=== PATIENT | female | born 1985 ===

== ENCOUNTER 2020-07-17 05:38 | Day surgery (SDC) | payer OTHER ==
[2020-07-13 14:02] VITALS: BMI 28.3
--- NOTE | 2020-07-16 10:25 | HP ---
Scheduled for surgery on 07/17/2020. HISTORY OF PRESENT ILLNESS: Ms. Dorado is a 34-year-old white female G4, P4, who is having a long history of menorrhagia and severe dysmenorrhea. She has also had recurrent right ovarian cyst, which causes her bouts of intermittent pain. She has significant history of a previous pulmonary embolism after of one of her children, which was somewhat associated with trauma. She had a workup at that time that did show her to have antiphospholipid syndrome. She has been on Coumadin off and on over the past several years due to this and states it is a recurring problem with symptoms of cyst syndrome, it will clear with her antibodies and then recur. She did have a COVID back in mid May when she was previously scheduled for surgery and when she was interviewed at that time, she was reporting some episodes of shortness of breath and bradycardia. Due to her medical history, we did obtain a cardiology consult recently. She underwent an echocardiogram of her heart along with the stress test. This was performed by Dr. Uvaldo Browne. Actually, her echocardiogram showed normal ejection fraction 55% to 60% with IAS with possible PFO (patent foramen ovale). She had a normal stress test. He cleared her for hysterectomy. The patient has also had a pelvic ultrasound in my office in November of 2019 showing normal-appearing uterus with a resolving right ovarian cyst with recent rupture. She has had a normal Pap smear with an HPV the past year along with the endometrial biopsy showing benign findings. PAST MEDICAL HISTORY: Antiphospholipid syndrome, anxiety, PFO, previous pulmonary embolism, and prior hypertension. PAST SURGICAL HISTORY: No surgical history except for the Essure. FAMILY HISTORY: Mother from heart attack. She has 4 sons. Family history of coronary artery disease. SOCIAL HISTORY: Remote history. No illicit drug use or alcohol. ALLERGIES: SHE HAS ALLERGIES TO AZITHROMYCIN. PHYSICAL EXAMINATION: VITAL SIGNS: Blood pressure 130/68, heart rate 98. Weight 175, BMI 21.3, height 76 inches. HEENT: Within normal limits. CHEST: Clear to auscultation. HEART: Regular rate and rhythm. S1, S2 heart sounds. No murmurs, rubs, or gallops. ABDOMEN: Soft, nontender. PELVIC: Vulva and vagina had no lesions. Cervix had no lesions. Uterus was mildly enlarged and mildly tender on exam. Adnexa nontender with no masses. CURRENT MEDICATIONS: 1. Clonazepam 0.5 mg tablet one t.i.d. p.r.n. anxiety. 2. Sertraline 50 mg tablet daily. 3. She is on no Lovenox bridging 0.6 mL b.i.d. for 6 weeks. ASSESSMENT AND PLAN: This is a 34-year-old white female G4, P4, with prior Essure, has chronic pelvic pain issues, recurrent right-sided pelvic pain with cyst and menorrhagia. The patient has history of antiphospholipid syndrome, which complicates her management of the menorrhagia due to intermittent anticoagulation issues. The patient is desiring definitive surgical therapy and we will proceed with a robotic TLH with RSO due to recurrent right-sided pelvic pain. She has been cleared from cardiology standpoint and surgery scheduled for 07/17/2020. We will do Lovenox bridge therapy postsurgery approximately 6 weeks. Job ID: [id number]
[2020-07-17] MEDS ORDERED: Famotidine/PF 20 mg/2ml Vial ONE ×2 (06:15→06:26)
[2020-07-17] MEDS ORDERED: Gabapentin 300 MG CAP ONE (06:15)
[2020-07-17] MEDS ORDERED: CeleCOXIB 100 MG CAP ONE (06:16)
[2020-07-17] MEDS ORDERED: Fentanyl 100 MCG/2 ML VIAL ONE ×2 (06:26→09:18)
[2020-07-17] MEDS ORDERED: Meperidine HCl/PF 25 MG/ML VIAL ONE ×2 (06:26→09:19)
[2020-07-17] MEDS ORDERED: Bupivacaine PF 0.5% 30 ML VIAL ONE (06:32)
[2020-07-17] MEDS ORDERED: EPINEPHrine 1 MG/ML AMP ONE (06:32)
[2020-07-17 06:37] LABS: BHCG - Serum Negative (NEGATIVE); Pregs Control Background? CLEAR/WHITE (CLR/WHITE); Pregs Control Bar Appear? YES (CONTROL BAR)
[2020-07-17 06:39] LABS: #Eosinphils 0.1 thou/uL (0.0-0.7); #Lymphocytes 2.4 thou/uL (1.20-3.40); #Monocytes 0.6 thou/uL (0.11-0.59); #Neutrophils 4.4 thou/uL (1.40-6.50); %Basophils 0.2 % (0.0-1.0); %Eosinophils 1.1 % (0.0-10.0); %Lymphocytes 31.5 % (21.0-51.0); %Neutrophils 59.2 % (42.0-75.0); Hemoglobin 13.1 g/dL (12.0-16.0); Mean Corpuscular HGB CONC 33.5 g/dL (32.0-36.0); Mean Corpuscular Hemoglobin 31.2 pg (27.0-31.0); Mean Corpuscular Volume 93.2 fL (78.0-98.0); Mean Platelet Volume 9.5 fL (7.4-10.4); Platelet Count 189 thou/uL (130-400); RBC Distribution Width 11.5 % (11.5-14.5); White Blood Cell (WBC) Count 7.5 thou/uL (4.8-10.8)
[2020-07-17] MEDS ORDERED: SUGAMMADEX SODIUM 500 MG/5 ML VIAL ONE (06:39)
[2020-07-17] MEDS ORDERED: Midazolam HCl 2 mg/2 ml Vial ONE (07:07)
[2020-07-17] MEDS ORDERED: Lidocaine 1% PF 5 ML VIAL ONE (09:16)
[2020-07-17] MEDS ORDERED: Ondansetron PF 4 MG/2 ML Vial ONE (09:16)
[2020-07-17] MEDS ORDERED: PHENYLEPHRINE-NS 100 MCG/ML 10 ML SYRINGE ONE (09:16)
[2020-07-17] MEDS ORDERED: Rocuronium Bromide 10 MG/ML (10ML VIAL) ONE (09:16)
[2020-07-17] MEDS ORDERED: PROPOFOL 200 MG/20 ML VIAL ONE (09:16)
[2020-07-17] MEDS ORDERED: Dexamethasone 20 MG/5 ML VIAL ONE (09:16)
[2020-07-17] MEDS ORDERED: Metoclopramide HCl 10 MG/2 ML VIAL ONE (09:16)
--- NOTE | 2020-07-17 10:25 | OP ---
DATE OF PROCEDURE: 07/17/2020 PREOPERATIVE DIAGNOSES: 1. A 34-year-old white female, G4, P4 with menorrhagia. 2. Dysmenorrhea. 3. Chronic pelvic pain with recurring right ovarian cyst. 4. History of Essure device placement. 5. History of antiphospholipid antibody syndrome. POSTOPERATIVE DIAGNOSES: 1. A 34-year-old white female, G4, P4 with menorrhagia. 2. Dysmenorrhea. 3. Chronic pelvic pain with recurring right ovarian cyst. 4. History of Essure device placement. 5. History of antiphospholipid antibody syndrome. PROCEDURES PERFORMED: Robotic TLH, RSO, and left salpingectomy. ASSISTANCE SURGEON: Wilfredo Coffman MD. ANESTHESIA: General endotracheal. ESTIMATED BLOOD LOSS: 25 mL. COMPLICATIONS: None. COUNTS: Correct x2. ANTIBIOTICS: 2 g Ancef on-call to OR with ERAS protocol. PATHOLOGY: Right tube, ovary, left tube, and uterus and cervix. FINDINGS: 1. Normal-appearing bilateral fallopian tubes and ovaries. 2. The uterus mildly enlarged and boggy in appearance suggestive of adenomyosis. 3. Clear urine present in Catherine catheter postprocedure and bladder was watertight to fluid distention postprocedure. 4. Bilateral ureteral peristalsis visualized postprocedure. DESCRIPTION OF PROCEDURE: The patient previously received informed consent in regard to surgery. She was taken back to the operating room, where she received a general endotracheal anesthetic agent without complications. She was placed in the dorsal lithotomy position with Jeronimo stirrups and prepped and draped in usual sterile fashion. A side-arm speculum was placed in the vagina after Catherine catheter had been placed. The uterus sounded to 8 cm and a size 8 cm DINA uterine manipulator with a 4.0 cm cervical cup was placed in usual fashion. Tenaculum and speculum were removed. Attention was then turned to the abdomen, where perspective trocar sites were infiltrated with 0.5% Marcaine with epinephrine. A 12 mm supraumbilical incision was made. Veress needle was entered into the peritoneal cavity with patient pressures noted to be less than 5 mm. Abdomen was insufflated to patient pressure of 15, approximately 4.5 L of carbon dioxide gas. Veress needle was then removed, and a size 12 mm trocar was placed. The robotic laparoscope was introduced through the trocar sleeve confirming proper entry. The patient was placed in Trendelenburg position and additional bilateral 8 mm trocars were placed on the lower abdomen by laparoscopic guidance along with the right upper quadrant 11 mm psychologist research assistant port. Robot was then docked. I then broke scrub and proceeded to carry out the surgery from the operative console while my assistants remained at the bedside. My psychologist research assistant grabbed the left fallopian tube. I cauterized the mesosalpinx with monopolar scissors and then coagulated the mesosalpinx removing the left fallopian tube. This was removed out of the right upper quadrant psychologist research assistant port. I then coagulated the uterine ovarian ligaments and the remainder of the broad ligament hugging close to uterus as we proceeded to coagulate the round ligament and transect this. The anterior leaf of the vesicouterine peritoneum was then entered, and the bladder flap was made in the usual fashion. The bladder was atraumatically taken down in a layering fashion of the vesicouterine peritoneum past the cervical vaginal margin. I also skeletonized the uterine vessels and coagulated them in the internal cervical os region with bipolar fenestrated cautery. The right infundibulopelvic ligament was then identified and the bipolar fenestrated cautery was utilized to coagulate this hugging close to the ovary away from the pelvic sidewall. The right IP ligament was cauterized and transected with monopolar scissors. Serial coagulation of the broad ligament hugging close to uterus was carried out again to the right round ligament, it was reached, which was coagulated and transected. The remainder of the anterior vesicouterine peritoneum leaf was incised and dissected safely past the cervical vaginal margin, dropping the bladder away from the anticipated anterior colpotomy. Again, uterine vessels were skeletonized, and they were coagulated in internal cervical os region. We distended the bladder before the anterior colpotomy was performed, and the bladder was noted to be well away from the anticipated incision site. Anterior colpotomy then was made from 12 to 3 to 12 to 9 o'clock position with monopolar scissors and completed from 6 to 9 and 6 to 3 o'clock. The specimen was then delivered into the vaginal vault. The monopolar scissors were switched with a Sahil needle bobtail driver and then I coagulated the vaginal cuff with bipolar fenestrated cautery achieving hemostasis. The STRATAFIX suture was then brought in by my psychologist research assistant and I closed the vaginal cuff in full-thickness closure starting from the right angle to the left angle back towards the right angle. The excess suture and needle were then trimmed and brought out through the right upper quadrant port. We then irrigated the pelvis well. All pedicle sites were noted to be hemostatic. The bladder was draining clear urine. Bilateral ureteral peristalsis was visualized on both sidewalls and ureters appeared to be inferior and lateral to the operative sites. Jay was sprayed over the pedicle sites for additional hemostasis and then the robot was undocked. Trocar sleeves were removed. I rescrubbed and I placed a deep stitch of 0 Vicryl in a [id number] stitch fashion in the umbilical fascial defect and the remaining of the trocar sites were closed with 4-0 Monocryl and Dermabond. A sponge stick of the vagina was also performed confirming hemostasis in the vaginal vault. Job ID: [id number] [id number]
[2020-07-17] MEDS ORDERED: HYDROcodone/Acetaminophen 5/325 mg Tablet ONE (10:40)
== END 2020-07-17 11:40 | disposition home or self-care (01) ==
LOC: SDC 05:38
PROVIDERS: ATTEND Obstetrics & Gynecology
PROC: 0UT04ZZ Resection of Right Ovary, Percutaneous Endoscopic Approach (ICD-10-PCS; principal; 2020-07-17)
PROC: 0UT74ZZ Resection of Bilateral Fallopian Tubes, Percutaneous Endoscopic Approach (ICD-10-PCS; principal; 2020-07-17)
PROC: 0UT94ZZ Resection of Uterus, Percutaneous Endoscopic Approach (ICD-10-PCS; principal; 2020-07-17)
DX: N83.11 Corpus luteum cyst of right ovary (principal); D68.61 Antiphospholipid syndrome; F41.9 Anxiety disorder, unspecified; I10 Essential (primary) hypertension; Q21.1 Atrial septal defect; Z79.899 Other long term (current) drug therapy; Z86.16 Personal history of COVID-19; Z88.1 Allergy status to other antibiotic agents; Z91.018 Allergy to other foods
CPT/HCPCS: 36415; 84703; 85025; 86850; 86900; 86901; 88307; J0171; J0690; J1100; J2175; J2250; J2405; J2704; J2765; J3010; S0020; S0028